=== PATIENT | female | born 1955 | race Hispanic/Latino ===

== ENCOUNTER 2016-10-23 11:40 | Day surgery (SDC) | payer OTHER ==
--- NOTE | 2016-10-19 13:13 | PCM.ANEPRE ---
Anesthesia Pre-Op Review Reason for Review: MADI SMITH 09/01 Anesthesia Recommendations: Proceed with Procedure Additional Comments 61 yo F, BMI 42.7 scheduled for umbilical hernia repair and right breast biopsy with Dr. Moctezuma. Madi Smith 09/01, no sleep study Echo in 2003 relatively unremarkable. Anesthetic from cholecystectomy in 2016 reviewed, no complications. OK to proceed, consider DEVI protocol. Farshad Mullins Chart Reviewed by: MD Susanna Boss Jeffrey L MD October 19, 2016 13:13
[~2016-10-23] VITALS: Ht 154.9 cm; Wt 102.5 kg
[2016-10-23] VITALS (9 sets, daily range): BP systolic 144–193; BP diastolic 59–78; PULSE 74–80; RESP 12–30; O2SAT 92–100
--- NOTE | 2016-10-23 07:27 | PCM.HPANE ---
Patient Data Surgeon Admitting Provider: Attending Provider:Rasheed Moctezuma MD Primary Care Physician:Rasheed Moctezuma MD Other Provider:Dafne Wade Anesthesia Reason for Visit Umbilical Hernia, Right Breast Mass Ht/WT & BMI Height (Feet): 5 Height (Inches): 1 Weight (Kilograms): 102.511 Body Mass Index 42.00 Allergies Coded Allergies: metoprolol (Verified Allergy, Unknown, UNKNOWN, 10/19/16) Uncoded Allergies: Mayonaise (Allergy, Severe, Rash, 10/19/16) CREAM,DEWITT,SOURCREAM (Allergy, Unknown, UNKNOWN, 09/26/15) "I just don't eat those." Past Anesthesia History Anesthesia History: Denies:: Abnormal Airway, Anesthesia Reactions, Difficult Intubation, Malignant Hyperthermia Diabetes History Hx Diabetes?: Yes (10/13/16 HGB A1C 6.8) Type of Diabetes: Type II Glycemic Control: Insulin & Oral Medication MRSA MRSA: No Medications Blood Thinner: Aspirin Hypertension Medication: Yes (AMLODIPINE,LISINOPRIL) Active Scripts Beclomethasone Dipropionate (Qvar)8.7 Gm Aer.w.adap8.7 Gm IH BID #1 INHALER Prov:Paul Bojorquez MD 07/09/15 Albuterol Neb Soln 2.5 Mg/3 Ml Vial.neb5 Mg INHALATION Q4H PRN For Wheezing #30 NEB Ref 0 Prov:Chiki Campuzano MD 06/24/15 Reported Medications Ubidecarenone (Coenzyme Q10)10 Mg Icojjbd85 Mg PO DAILY 10/19/16 Tramadol 50 Mg Vqnozy23 Mg PO DAILY PRN For Pain Ref 0 09/26/15 Montelukast 10 Mg Dcorpq09 Mg PO DAILY Ref 1 06/28/15 Albuterol HFA (Proair HFA)8.5 Gm Hfa.aer.ad2 Puffs INHALATION Q4H #1 INHALER 06/28/15 Aspirin 81 Mg Qurplw57 Mg PO DAILY Ref 1 06/28/15 Cholecalciferol (Vitamin D3) (Vitamin D)1,000 Unit Tablet1,000 Unit PO DAILY #1 BOTTLE Ref 1 06/28/15 Amlodipine 10 Mg Vhcjia15 Mg PO DAILY Ref 1 06/28/15 Lovastatin 20 Mg Zposir89 Mg PO HS CHOLESTEROL #30 TABLET Ref 1 06/28/15 Lisinopril 40 Mg Qiiret66 Mg PO DAILY 30 Days Ref 1 06/28/15 Hydrochlorothiazide 25 Mg Bshsip40 Mg PO DAILY 30 Days Ref 1 06/28/15 Metformin 500 Mg Tablet1,000 Mg PO BID BLOOD SUGAR Ref 0 06/28/15 Potassium Chloride ER 10 Meq Yypwcf21 Meq PO DAILY #0 TABLET Ref 1 TAKE WITH FOOD 06/28/15 Insulin Lispro (HumaLOG U100 Insulin Pen)100 Unit/1 Ml Insuln.dzu19-75 Unit SUBQ TIDAC #1 PENINJ Ref 0 Blood Sugar Lispro Correction <151 0 units 151-175 1 unit 176-200 2 units 201-225 3 units 226-250 4 units 251-275 5 units 276-300 6 units 301-325 7 units 326-350 8 units 351-375 9 units 376-400 10 units >400 12 units Check blood sugars before meals and at bedtime. Use correction factor only before meals. 06/28/15 Insulin Glargine (Lantus U100 Solostar Insulin Pen)100 Unit/1 Ml Insuln.pen30 Unit SUBQ DAILY #1 PENINJ Ref 0 06/28/15 History History of ENT Problems?: Yes HEENT History: Positive for:: Cataracts Sinus Problem (SEASONAL ALLERGIES) Denies:: Abnormal Airway Difficult Intubation Dysphagia Denture Type: None Teeth Condition: Within Normal Limits Other HEENT Pertinent History: S/P TONSILLECTOMY Hx of Heart Problems?: Yes Cardiovascular History: Positive for:: Chest Pain Edema Hypertension (HYPERLIPIDEMIA) Denies:: Cardiac Surgery Congestive Heart Failure Heart Murmur (ECHO 10/2003 EF 55-60%) Pacemaker Thrombophlebitis Valvular Heart Disease Hx of Respiratory Problem?: Yes Respiratory History: Positive for:: Asthma Dyspnea Use of Inhalers / NEBS Denies:: COPD Chest Surgery Emphysema Hemoptysis Pneumonia Tuberculosis Use of C-PAP Machine (SNORES) Hx Neurologic Problems?: Yes Neurological History: Denies:: Alzheimer's Disease CVA Dementia Dizziness Headaches Parkinson's Disease Seizures Other Neurological Pertinent: C/OF LEG CRAMPING Hx of GI Problems?: Yes Other GI Pertinent History: UMBILICAL HERNIA=CURRENT PROBLEM Hx of Problems?: Yes Genitourinary History: Denies:: HX of Hemodialysis Kidney Stones Urinary Tract Infection HX of Peritoneal Dialysis: No Female Hx: Positive for:: Pelvic Inflammatory (HX TAHMINA VAGINITIS) Problems with Breasts? (S/P RT BREAST BX RT BREAST MASS=CURRENT PROBLEM ) Denies:: Currently (S/P C/S X2, UTERINE SUSPENSION) Skin History: Denies:: History Skin Disorders? Pressure Ulcers Hx Musculoskeletal Problems?: Yes Musculoskeletal History: Denies:: Back Injury (C/OF CHRONIC NECK PAIN) Joint Replacement Musculoskeletal Trauma Hx of Psycho/Social Problems?: No Psycho Social History: Positive for:: Anxiety (No medication) Denies:: Bipolar Disorder Hx Depression Hx Surgeries?: Yes (RT BREAST BX,HERMELINDA,C/S X2,TONSILS,POSTERIOR RPR,BLADDER SLING) Hx Any Other Health Problems?: Yes Other History: Positive for:: Hospitalization ([facility]) Denies:: Cancer Endocrine Disease Thyroid Disease History Blood Transfusions: Denies:: Blood Transfusions Hx Diabetes: Yes (10/13/16 HGB A1C 6.8) Hx Alcohol Use: NoHx Substance Use: No Smoking Status: Never Smoker Have You Smoked inLast 12 mo: No Stop/Bang S-Snoring: Do You Snore Loudly: Yes T-Tired: feel tired, fatigued: No O-Obsered: Observed not breath: No P-Blood Pressure: treated: Yes B- Body Mass Index > 35 kg/m2: Yes A- Age over 50: Yes N- Neck Large Circumference: Yes G- Gender Male: No DEVI Total Score: 5 DEVI Risk Assessment: High Risk, =/>3 Yes DEVI Category 4 OutPt Procedure: Yes Risk Assessment Category Category 1A: Patient has history of documented sleep apnea, and HAS NOT received any narcotic, sedative or anesthesia administration during this stay. Category 1B: Patient has history of documented sleep apnea, and HAS received any narcotic , sedative or anesthesia administration during this stay Category 2: Patient has SUSPECTED Obstructive Sleep Apnea, and HAS received any narcotic , sedative or anesthesia administration during this stay. Category 3: Patient has SUSPECTED Obstructive Sleep Apnea and HAS NOT received narcotic, sedative or anesthesia administration during this stay. Category 4: Outpatient in Procedural Areas with known sleep apnea or who screen positive for High Risk via the STOP/BANG questionnaire. Exam Exam General Appearance: Alert, Oriented X3, Cooperative, No Acute Distress HEENT/AIRWAY: MP 2 Lungs: Clear to Auscultation, Normal Air Movement Heart: Exam Unremarkable, Regular Rate/Rhythm, No Murmurs/Rubs/Gallops Plan Impression Patient chart reviewed, patient interviewed and anesthestic plan with risks, benefits, and alternatives discussed, and informed consent obtained. ASA Physical Status: ASA3 Severe Disease (bmi 42) Anesthetic Plan: GA Bene/Risks/Altern/Consents: Yes HP Complete Prior to Induction: Yes Sanya Guadarrama MD October 23, 2016 07:27
[~2016-10-23 11:40] MED LIST: ALBU2.5V4 INHALATION; ALBU8.5H2 INHALATION; AMLO10TA3 PO; ASPI-973 PO; BECL8.7A6 IH; CHOL100043 PO; CeFAZolin Inj 2 GM in IV Premix 1 EACH IV ONE; HYDR25TA4 PO; INSU100I13 SUBQ; INSU100I18 SUBQ; LISI40TA PO; LOVA20TA PO; Lactated Ringer's 1,000 ML IV ONE; METF500T4 PO; MONT10TA23 PO; POTA10TA12 PO; TRAM50TA2 PO; UBID10CA9 PO
[2016-10-23] MEDS ORDERED: Propofol 10,000 mCg/mL 20 mL Inj ONE (11:41)
[2016-10-23] MEDS ORDERED: Ketamine 10 mg/mL 20 mL Inj ONE (11:41)
[2016-10-23] MEDS ORDERED: Ondansetron 2 mg/mL 2 mL Inj ONE (11:41)
[2016-10-23] MEDS ORDERED: fentaNYL-PF 50 mCg/mL 2 mL Inj ONE (11:41)
[2016-10-23] MEDS ORDERED: CeFAZolin Inj 2 gm / 50mL D5W IV ONE (12:05)
[2016-10-23] MEDS ORDERED: Lactated Ringer's 1,000 ML IV ONE (12:36)
[2016-10-23] MEDS ORDERED: Albuterol 1.25 mg/3 mL Inhalation Solution NEB ONE (13:05)
[2016-10-23] MEDS ORDERED: Insulin LISPRO 300 Unit/3 mL Inj SUBQ ONE (13:05)
[2016-10-23] MEDS ORDERED: Albuterol 2.5 mg/3 mL Inhalation Solution NEB ONE (13:11)
[2016-10-23] MEDS ORDERED: Lactated Ringer's 500 ML IV PRN (14:49)
[2016-10-23] MEDS ORDERED: Lactated Ringer's 1,000 ML IV SCH (14:49)
[2016-10-23] MEDS ORDERED: EPHEDrine Sulfate 50 mg/mL Inj IVPUSH PRN (14:50)
[2016-10-23] MEDS ORDERED: MetoCLOpramide 5 mg/mL 2 mL Inj IVPUSH PRN (14:50)
[2016-10-23] MEDS ORDERED: Dexamethasone 4 mg/mL Inj IVPUSH PRN (14:50)
[2016-10-23] MEDS ORDERED: Ondansetron 2 mg/mL 2 mL Inj IVPUSH PRN (14:50)
[2016-10-23] MEDS ORDERED: fentaNYL-PF 50 mCg/mL 2 mL Inj IVPUSH PRN (14:50)
[2016-10-23] MEDS ORDERED: Phenylephrine 10,000 mCg/mL Inj IVPUSH PRN (14:50)
[2016-10-23] MEDS ORDERED: Bupivacaine 0.5%/EPI 50 mL Inj INFILTRATE ONE (15:00)
[2016-10-23] MEDS ORDERED: HYDROcodone-APAP 5-325 mg Tablet PO PRN (15:55)
--- NOTE | 2016-10-23 15:57 | PCM.DISURG ---
Surgical Discharge Instruction Date of Service October 23, 2016 Dates of Hospitalization Date of Hospital Admission Providers Admitting Physician: Primary Care Physician: Rasheed Moctezuma MD Attending Physician: Rasheed Moctezuma MD Discharge Diagnosis Discharge Diagnosis Umbilical hernia, right breast mass Diet Discharge Diet: Diabetic Activity Discharge Activity-General: No lifting >10 pounds for 4-6 weeks Dressing and Incisional Care Dressing Instructions: Dermabond will peel off gradually Hygiene: May shower Follow Up Plan Follow Up Plan In the general surgery [place] postoperative clinic in 2-3 weeks Call your provider for: Fever (over 101.5), Vomiting, Discharge @ incision, pus discharge Rasheed Moctezuma MD October 23, 2016 15:57
--- NOTE | 2016-10-23 16:04 | PCM.SURGOP ---
Surgical Operative Report Date of Service: October 23, 2016 Pre Operative Diagnosis Umbilical hernia, right breast mass Post Operative Diagnosis Incarcerated umbilical hernia, right breast lipoma Procedure: Umbilical hernia repair with mesh, right breast excisional biopsy Surgeon and Warehouse Order Picker: Surgeon: Rasheed Moctezuma MD Assistants: Serge Benjamin PA-C Indication for Procedure 61-year-old woman who has had a long-standing right breast lump, which has gotten bigger. Prior right breast biopsy in 2013 showed fibroadipose tissue. She had a wound infection from that biopsy, which subsequently healed. Ultrasound of the breast showed a solid isoechoic mass measuring 5.9 x 3.9-2.2 cm. She also had an enlarging painful mass at the umbilicus for 2-3 months. She had undergone prior cholecystectomy. An ultrasound of the abdomen showed a fat-containing umbilical hernia. After discussion of risks and benefits, she agreed to proceed with umbilical hernia repair with mesh, as well as right breast excisional biopsy. Findings: The right breast mass was grossly consistent with a lipoma measuring 4.5 x 3.0 cm. The umbilical fascial defect measured 1 cm, containing incarcerated preperitoneal fat. A repair was performed using the Bard Ventralex medium mesh. Procedure Details After smooth induction of general anesthesia with an LMA, the patient was placed in the supine position with both arms out, and was prepped and draped in wide sterile fashion. A procedural pause was performed according to the SCOAP checklist, and all were found to be in agreement. A curvilinear incision was made at the umbilicus on the left side, with a small supraumbilical extension. Dissection was carried down with electrocautery through the superficial subcutaneous tissue. The umbilical stalk was dissected off of the hernia sac, which was at the superior left lateral aspect. The hernia contents were from the umbilical stalk. The hernia sac was opened. The hernia contained incarcerated preperitoneal fat. This was partially excised, and the remainder was reduced through the fascial defect. The fascia was skeletonized. The fascial defect measured 1.0 cm in diameter. By palpation, there were no other hernia defects, and no significant intra- abdominal adhesions. A repair was performed using the Bard Ventralex mesh, size medium. This was secured as an underlay using 0 Nurolon transfacial sutures circumferentially. The tails of the mesh were cut. The mesh was in good position. The fascia was closed over the mesh transversely using interrupted 0 Nurolon sutures. The skin incision was closed with interrupted deep 3-0 Vicryl sutures, and a running 4-0 Monocryl subcuticular stitch. Dermabond was applied to the skin and allowed to dry. Next, an elliptical right breast incision was made, encompassing her prior wound, and extending medially over the palpable mass. Dissection was carried through the subcutaneous tissue and skin flaps were raised. The mass was dissected free from the surrounding tissue. Grossly, it was consistent with a lipoma. Ex vivo , the excised mass measured 4.5 x 3.0 cm. It was dissected free en bloc with the skin ellipse. There was sent for permanent pathology. The incision was closed with an interrupted deep 3-0 Vicryl suture, and a running 4-0 Monocryl subcuticular stitch. Dermabond was applied to the skin as a dressing. At the end of the case all needle and sponge counts were correct 2. The patient was awakened from anesthesia without difficulty, and taken to the recovery room in satisfactory condition, having tolerated the procedure well. Complications There were no periprocedural complications identified. Surgical Specimen Removed: Yes Specimen sent to Pathology: Yes Surgical Specimen description: Right breast mass. Anesthetic Plan: GA Grafts, Implants: Implants-See Implant Record Output, Estimated Blood Loss: 10 Blood Administration during alvarado: No Drains: None Catheters: None copies to: Nik Lazcano MD, Joshua D MD October 23, 2016 16:04
[2016-10-23] MEDS ORDERED: Insulin LISPRO 300 Unit/3 mL Inj IV ONE (16:10)
[2016-10-23] MEDS: HYDROmorphone 1 mg/mL Inj IVPUSH PRN ×2 (16:26→16:36)
--- NOTE | 2016-10-24 07:29 | PCM.ANEP1 ---
Post Anesthesia PACU Phase 1 Assessment Anesthetic Administered: GA Level of Alertness: Awake, talking SANDS's with Equal Strength: Yes Pain: No Nausea or Vomiting: No CV Function & Hydration Stable: Yes Airway Device: Oralpharangeal Airway Oxygen Delivery: Simple Mask Lungs: Clear to Auscultation, Normal Air Movement Dermatome Level: Full Sensation PACU Phase 2 Assessment Complications: No Follow up Care: No Patient Instructions Provided: Yes Sanya Guadarrama MD October 24, 2016 07:29
--- NOTE | 2016-10-25 11:11 | PATH ---
SURGICAL PATHOLOGY Attending Physician:Meagan Edwards CASE STATUS: Signed Out PATIENT NAME: CYRUS PINEDO PID: [id number] : 1955 DATE COLLECTED:10/23/2016 00:00 SPECIMEN: Breast Mass, Excision CLINICAL HISTORY: RIGHT BREAST MASS 1). RIGHT BREAST MASS FINAL DIAGNOSIS: 1.RIGHT BREAST MASS: LIPOMA. ICD10 D17.79 D24.1 GROSS DESCRIPTION: The specimen is received in formalin, labeled with the patient's name, sublabeled as right breast mass and consists of an unoriented gifford-yellow fatty mass (6.1 x 4.2 x 2.4 cm) partially covered by an ellipse of skin (2.3 x 1.3 cm). The cut surface is gifford-yellow lobular and homogenous. The skin is brown and unremarkable. Ink code: black-resection margin. Section code: (A-C) mass, market survey representative. Note: Approximate total fixation time in formalin-20 hours and 30 minutes using a collection date of October 23, 2016 with no collection time given. 10/24/16 JM MICRO DESCRIPTION: See diagnosis. ICD-9 CODES: CPT CODES: 42243 Electronically Signed Out Enrrique Grissom MD [facility] [address], [place] [address] Technical component performed at [facility], [facility] [address], [place], [address]
== END 2016-10-23 23:59 | disposition home or self-care (01) ==
LOC: SAS 11:40
PROVIDERS: ATTEND Student in an Organized Health Care Education/Training Program
DX: K42.0 Umbilical hernia with obstruction, without gangrene (principal); D24.1 Benign neoplasm of right breast; D17.79 Benign lipomatous neoplasm of other sites; I10 Essential (primary) hypertension; E78.5 Hyperlipidemia, unspecified; E11.9 Type 2 diabetes mellitus without complications; J45.909 Unspecified asthma, uncomplicated; F41.9 Anxiety disorder, unspecified; M54.2 Cervicalgia; K76.0 Fatty (change of) liver, not elsewhere classified; E66.01 Morbid (severe) obesity due to excess calories; Z79.82 Long term (current) use of aspirin; Z79.4 Long term (current) use of insulin; Z79.84 Long term (current) use of oral hypoglycemic drugs; Z68.41 Body mass index [BMI] 40.0-44.9, adult
CPT/HCPCS: 19120; 49587; C1781; J0690; J1170; J1815; J2405; J3010; J7120; J7613